=== PATIENT | male | born 1945 | race Caucasian/White ===

== ENCOUNTER → 2019-03-16 06:22 | Outpatient (CLI) | payer OTHER, SELFPAY ==
--- NOTE | 2019-03-16 | DI.ECHO.S_ITS ---
[place] +---------+ [facility] +---------+ : : [address] : : : : [id number] : : : : Phone: [phone]+ Echocardiogram Report + + :Name: IRAM COLON Study Date: 03/16/2019 Height: 70 in : :[facility] Exam Location: [facility] Weight: 280 lb : : Gender: Male BSA: 2.4 m2 : :: 1945 Age: 73 yrs BP: 140/88 mmHg: :Reason For Study: AFIB : : Performed By: August Pathak : :Referring: RUSSELL ESQUIVEL : + + Interpretation Summary 1) Normal left ventricular size with moderately reduced function (EF 35-40%). 2) Normal right ventricular size with mildly reduced function. 3) The left atrium is severely dilated. 4) No significant valvular abnormalities. 5) Atrial fibrillation with rapid ventricular response present during the study. 6) No prior Echo available for comparison. Procedure: A two-dimensional transthoracic echocardiogram with color flow and Doppler was performed. The study quality was technically difficult. There is no prior echocardiogram noted for this patient. The patient was in atrial fibrillation with rapid ventricular response during the exam with a heart rate exceeding 100 bpm. The patient had a heart rate of 90-132 beats per minute. Left Ventricle: The left ventricle is normal in size. There is normal left ventricular wall thickness. The ejection fraction is estimated to be 35-40%. Left ventricular systolic function is moderately reduced. There is moderate global hypokinesis of the left ventricle. Right Ventricle: The right ventricle is normal size. Right ventricular systolic function is mildly reduced. Atria: The left atrium is severely dilated. The right atrium is mildly dilated. The interatrial septum is intact with no evidence for an atrial septal defect. Mitral Valve: The mitral valve leaflets are mildly calcified. There is mild mitral annular calcification. There is mild mitral regurgitation. Aortic Valve: The aortic valve is trileaflet. The aortic valve is mildly calcified. There is no aortic valve stenosis. No aortic regurgitation is present. Tricuspid Valve: The tricuspid valve leaflets are thin and pliable. There is mild tricuspid regurgitation. The right ventricular systolic pressure is estimated to be at least 32 mmHg based on an estimated right atrial pressure of 3 mm Hg. Pulmonic Valve: The pulmonic valve is not well visualized. There is trace pulmonic regurgitation. Great Vessels: The aortic root is normal size. The ascending aorta is at the upper limits of normal in size. The pulmonary artery is normal size. The IVC is of normal diameter and collapses greater than 50% with a sniff. This suggests a low right atrial pressure of 3 mm Hg. Pericardium/ Pleura There is no pericardial effusion. There is no pleural effusion. MMode/2D Measurements & Calculations LVIDd: 5.3 cm LVOT diam: 2.3 cm LVIDs: 4.7 cm Ao root diam: 3.8 cm FS: 11.8 % asc Aorta Diam: 3.8 cm EPSS: 0.92 cm IVSd: 1.0 cm LVPWd: 0.95 cm LV kauffman. diameter/BSA (cm/m^2): 2.2 LV sys. diameter/BSA (cm/m^2): 2.0 LA dimension: 4.6 cm RA long axis: 6.8 cm LA A2 area: 36.0 cm2 RA area: 25.3 cm2 LA A4 area: 39.2 cm2 RA vol: 80.2 ml LA length (vol): 8.1 cm RA : 33.3 ml/m2 LA vol: 148.5 ml IVC diam: 2.1 cm LA vol index: 61.7 ml/m2 Doppler Measurements & Calculations Ao V2 max: 133.9 cm/sec LVOT Max Sg: 117.2 cm/sec Ao V2 mean: 101.0 cm/sec LV V1 max P.6 mmHg Ao max P.5 mmHg LV V1 VTI: 21.1 cm Ao mean P.7 mmHg LESLIE(I,D): 3.5 cm2 Ao V2 VTI: 24.2 cm LESLIE(V,D): 3.5 cm2 sev ratio: 0.87 LESLIE indexed to BSA (cm^2/m^2): 1.5 MV E max sg: 106.7 cm/sec TR max sg: 269.9 cm/sec MV A max sg: 0.19 cm/sec TR max P.3 mmHg MV E/A: 560.5 PA V2 max: 85.6 cm/sec Med Peak E' Sg: 7.2 cm/sec PA V2 mean: 61.5 cm/sec E/E' med: 14.9 PA mean P.6 mmHg Lat Peak E' Sg: 8.9 cm/sec PA pr(Accel): 44.1 mmHg E/E' lat: 11.9 E/e' average: 13.4 MV dec time: 0.13 sec SV(LVOT): 84.6 ml Reading Physician:01:27 PM
== END ==
PROVIDERS: PCP Internal Medicine; Visit Provider Internal Medicine
DX: I08.1 Rheumatic disorders of both mitral and tricuspid valves (principal); I48.91 Unspecified atrial fibrillation
CPT/HCPCS: 93306; Q9957

== ENCOUNTER → 2019-06-14 13:38 | Outpatient (CLI) | payer OTHER, SELFPAY ==
--- NOTE | 2019-06-14 | DI.ECHO.S_ITS ---
[place] +---------+ [facility] +---------+ : : [address] : : : : [id number] : : : : Phone: [phone]+ Echocardiogram Report + + :Name: IRAM COLON Study Date: 06/14/2019 Height: 70 in : :[facility] Exam Location: [facility] Weight: 293 lb : : Gender: Male BSA: 2.5 m2 : :: 1945 Age: 74 yrs BP: 140/80 mmHg: :Reason For Study: Cardiomyopathy : :Ordering Physician: Castillo Plata : :Pia Performed By: Lupe Page : + + Interpretation Summary 1) Normal left ventricular size with moderately reduced function (EF 35-40%). 2) Normal right ventricular size with low normal function. 3) The left atrium is moderately dilated. 4) No significant valvular abnormalities. 5) Compared to the Echo done 03/16/2019, no significant change. Procedure: A two-dimensional transthoracic echocardiogram with color flow and Doppler was performed. The study quality was technically difficult. Comparison is made with the echocardiogram of 03/16/2019. A contrast injection of Definity was performed to improve assessment of LV function. The patient was in atrial fibrillation with heart rates between 88-107 bpm during the exam. Left Ventricle: The left ventricle is normal in size. There is normal left ventricular wall thickness. The ejection fraction is estimated to be 35-40%. Diastolic function could not be accurately assessed due to atrial fibrillation. Right Ventricle: The right ventricle is normal size. Right ventricular systolic function is at the lower limits of normal. Atria: The left atrium is moderately dilated. The right atrium is mildly dilated. There is no Doppler evidence for an interatrial shunt. Mitral Valve: The mitral valve leaflets are mildly calcified. There is mild mitral annular calcification. There is mild mitral regurgitation. Aortic Valve: The aortic valve is trileaflet. The aortic valve is mildly calcified. There is no aortic valve stenosis. No aortic regurgitation is present. Tricuspid Valve: The tricuspid valve is normal in structure and function. There is mild tricuspid regurgitation. The right ventricular systolic pressure is estimated to be at least 26 mmHg based on an estimated right atrial pressure of 3 mm Hg. Pulmonic Valve: The pulmonic valve is not well visualized. There is trace pulmonic regurgitation. Great Vessels: The aortic root is normal size. The ascending aorta is mildly enlarged. The pulmonary artery is normal size. The IVC is of normal diameter and collapses greater than 50% with a sniff. This suggests a low right atrial pressure of 3 mm Hg. Pericardium/ Pleura There is no pericardial effusion. There is no pleural effusion. MMode/2D Measurements & Calculations LVIDd: 5.7 cm LVOT diam: 2.3 cm EPSS: 0.83 cm Ao root diam: 3.6 cm IVSd: 0.76 cm asc Aorta Diam: 3.8 cm LVPWd: 0.87 cm LV kauffman. diameter/BSA (cm/m^2): 2.3 LA A2 area: 25.8 cm2 RA long axis: 6.9 cm LA A4 area: 32.6 cm2 RA area: 25.8 cm2 LA length (vol): 6.9 cm RA vol: 81.7 ml LA vol: 103.5 ml RA : 33.3 ml/m2 LA vol index: 42.1 ml/m2 RVD1 (basal): 4.6 cm RVD2 (mid): 4.3 cm TAPSE: 2.3 cm Doppler Measurements & Calculations Ao V2 max: 142.0 cm/sec LVOT Max Sg: 108.9 cm/sec Ao V2 mean: 97.5 cm/sec LV V1 max P.9 mmHg Ao max P.1 mmHg LV V1 VTI: 16.1 cm Ao mean P.4 mmHg LESLIE(I,D): 2.7 cm2 Ao V2 VTI: 24.5 cm LESLIE(V,D): 3.1 cm2 sev ratio: 0.66 LESLIE indexed to BSA (cm^2/m^2): 1.1 MV E max sg: 107.3 cm/sec TR max sg: 236.3 cm/sec MV P1/2t: 41.6 msec TR max P.5 mmHg PA V2 max: 67.0 cm/sec PA V2 mean: 49.3 cm/sec PA mean P.1 mmHg PA Accel Time: 0.07 sec MV P1/2t max sg: 108.9 cm/sec SV(LVOT): 65.1 ml MVA(P1/2t): 5.3 cm2 Reading Physician:12:12 PM
== END ==
PROVIDERS: PCP Internal Medicine; Visit Provider Internal Medicine Cardiovascular Disease
DX: I42.9 Cardiomyopathy, unspecified (principal); I51.7 Cardiomegaly
CPT/HCPCS: 93306; Q9957

== ENCOUNTER → 2019-10-09 08:34 | Outpatient (CLI) | payer OTHER, SELFPAY ==
[2019-10-09 09:54] LABS: Add Manual Diff / Slide Review NO; Basophils Absolute Auto 100 /uL (0-100); Basophils Percent Auto 0.7 % (0-2); Eosinophils Absolute Auto 100 /uL (0-450); Eosinophils Percent Auto 1.6 % (2-4); Hematocrit 46.6 % (41-53); Hemoglobin 15.7 g/dL (13.5-17.5); Lymphocytes Absolute Auto 1800 /uL (1100-4500); Mean Corpuscular HGB Conc 33.8 % (30-36); Mean Corpuscular Hemoglobin 30.2 PG (26-34); Mean Corpuscular Volume 89.3 fL (80-100); Monocytes Absolute Auto 700 /uL (0-900); Monocytes Percent Auto 9.2 % (3-14); Neutrophils Absolute Auto 5000 /uL (1500-7000); Neutrophils Percent Auto 65.5 % (50-75); Platelet Count 153 X10^3/uL (150-400); Red Blood Cell Count 5.22 X10^6/uL (4.5-5.9); Red Cell Distribution Width 14.9 % (11.6-14.8); White Blood Cell Count 7.7 X10^3/uL (4.5-11.0)
[2019-10-09 09:55] LABS: Blood Urea Nitrogen 13 mg/dL (9-20); Calcium 9.4 mg/dL (8.4-10.2); Carbon Dioxide 28 mmol/L (22-32); Chloride 104 mmol/L (98-107); Estimated Glomerular Filt Rate > 60.0 mL/min (>60); Glucose 130 mg/dL (80-110); HEMOLYSIS < 15 (0-50); Potassium 4.2 mmol/L (3.4-5.1); Sodium 142 mmol/L (137-145)
== END ==
PROVIDERS: PCP Internal Medicine; Visit Provider Internal Medicine Cardiovascular Disease
DX: I10 Essential (primary) hypertension (principal)
CPT/HCPCS: 36415; 80048; 85025

== ENCOUNTER → 2020-12-06 18:49 | Outpatient (ROUT) | payer MEDICARE, SELFPAY ==
[2020-12-06 19:04] LABS: Add Manual Diff / Slide Review NO; Basophils Absolute Auto 100 /uL (0-100); Basophils Percent Auto 1.3 % (0-2); Eosinophils Absolute Auto 100 /uL (0-450); Hematocrit 44.6 % (41-53); Hemoglobin 14.4 g/dL (13.5-17.5); Lymphocytes Absolute Auto 1500 /uL (1100-4500); Lymphocytes Percent Auto 16.1 % (25-40); Mean Corpuscular HGB Conc 32.2 % (30-36); Mean Corpuscular Hemoglobin 27.1 PG (26-34); Mean Corpuscular Volume 84.1 fL (80-100); Monocytes Absolute Auto 900 /uL (0-900); Monocytes Percent Auto 9.6 % (3-14); Neutrophils Absolute Auto 6900 /uL (1500-7000); Platelet Count 231 X10^3/uL (150-400); Red Cell Distribution Width 16.5 % (11.6-14.8); White Blood Cell Count 9.6 X10^3/uL (4.5-11.0)
[2020-12-06 19:19] LABS: Alanine Aminotransferase 17 IU/L (<50); Albumin 4.2 g/dL (3.5-5.0); Albumin Globulin Ratio 1.4 (1.0-2.8); Alkaline Phosphatase 95 U/L (38-126); Aspartate Aminotransferase 26 IU/L (17-59); BUN Creatinine Ratio 20.3 (6-22); Bilirubin Total 0.6 mg/dL (0.2-1.3); Blood Urea Nitrogen 16 mg/dL (9-20); Calcium 9.4 mg/dL (8.4-10.2); Carbon Dioxide 32 mmol/L (22-32); Chloride 102 mmol/L (98-107); Cholesterol 134 mg/dL (140-199); Estimated Glomerular Filt Rate > 60.0 mL/min (>60); Globulin 3.1 g/dL (1.7-4.1); Glucose 122 mg/dL (80-110); HDL Cholesterol 30 mg/dL (40-60); HEMOLYSIS < 15 (0-50); LDL Cholesterol Calculated 66 mg/dL (<100); Potassium 4.2 mmol/L (3.4-5.1); Sodium 141 mmol/L (137-145); Total Protein 7.3 g/dL (6.3-8.2); Triglycerides 189 mg/dL (35-150)
[2020-12-06 19:38] LABS: Hemoglobin A1C% w Est Avg Glu 6.7 % (4.0-6.0)
[2020-12-06 19:43] LABS: TSH w/ Reflex to FT4 0.79 uIU/mL (0.47-4.68)
== END ==
PROVIDERS: PCP Internal Medicine; Visit Provider Internal Medicine
DX: I48.20 Chronic atrial fibrillation, unspecified (principal); E78.2 Mixed hyperlipidemia
CPT/HCPCS: 80053; 80061; 83036; 84443; 84550; 85025

== ENCOUNTER → 2022-02-16 07:56 | Outpatient (CLI) | payer OTHER, SELFPAY ==
[2022-02-16 08:58] LABS: Add Manual Diff / Slide Review NO; Basophils Absolute Auto 100 /uL (0-100); Basophils Percent Auto 0.8 % (0-2); Eosinophils Absolute Auto 100 /uL (0-450); Eosinophils Percent Auto 0.9 % (2-4); Hematocrit 46.1 % (41-53); Hemoglobin 15.4 g/dL (13.5-17.5); Lymphocytes Absolute Auto 1900 /uL (1100-4500); Lymphocytes Percent Auto 22.7 % (25-40); Mean Corpuscular HGB Conc 33.3 % (30-36); Mean Corpuscular Hemoglobin 29.7 PG (26-34); Mean Corpuscular Volume 89.2 fL (80-100); Monocytes Absolute Auto 900 /uL (0-900); Monocytes Percent Auto 10.5 % (3-14); Neutrophils Absolute Auto 5400 /uL (1500-7000); Neutrophils Percent Auto 65.1 % (50-75); Platelet Count 156 X10^3/uL (150-400); Red Blood Cell Count 5.17 X10^6/uL (4.5-5.9); Red Cell Distribution Width 15.5 % (11.6-14.8); White Blood Cell Count 8.2 X10^3/uL (4.5-11.0)
[2022-02-16 09:48] LABS: BUN Creatinine Ratio 13.3 (6-22); Blood Urea Nitrogen 14 mg/dL (9-20); Calcium 9.3 mg/dL (8.4-10.2); Carbon Dioxide 30 mmol/L (22-32); Chloride 101 mmol/L (98-107); Cholesterol 127 mg/dL (140-199); Estimated Glomerular Filt Rate > 60.0 mL/min (>60); Glucose 161 mg/dL (80-110); HDL Cholesterol 28 mg/dL (40-60); HEMOLYSIS < 15 (0-50); LDL Cholesterol Calculated 56 mg/dL (<100); Sodium 142 mmol/L (137-145); Triglycerides 215 mg/dL (35-150)
[2022-02-16 10:11] LABS: TSH w/ Reflex to FT4 2.07 uIU/mL (0.47-4.68)
== END ==
PROVIDERS: PCP Internal Medicine; Referring Provider Internal Medicine Cardiovascular Disease; Visit Provider Internal Medicine Cardiovascular Disease
DX: E78.5 Hyperlipidemia, unspecified (principal); Z51.81 Encounter for therapeutic drug level monitoring; Z79.899 Other long term (current) drug therapy; I10 Essential (primary) hypertension
CPT/HCPCS: 36415; 80048; 80061; 84443; 85025

== ENCOUNTER → 2022-08-31 08:55 | Outpatient (CLI) | payer OTHER, SELFPAY ==
[2022-08-31 16:02] LABS: TSH w/ Reflex to FT4 1.76 uIU/mL (0.47-4.68)
== END ==
PROVIDERS: PCP Internal Medicine; Referring Provider Internal Medicine Cardiovascular Disease; Visit Provider Internal Medicine Cardiovascular Disease
DX: Z79.899 Other long term (current) drug therapy (principal); Z51.81 Encounter for therapeutic drug level monitoring
CPT/HCPCS: 36415; 84443

== ENCOUNTER → 2022-09-10 09:56 | Outpatient (CLI) | payer OTHER, SELFPAY ==
[2022-09-10 11:07] LABS: Hematocrit 47.7 % (41-53); Mean Corpuscular HGB Conc 33.4 % (30-36); Mean Corpuscular Hemoglobin 28.9 PG (26-34); Mean Corpuscular Volume 86.4 fL (80-100); Platelet Count 148 X10^3/uL (150-400); Red Blood Cell Count 5.53 X10^6/uL (4.5-5.9); Red Cell Distribution Width 16.4 % (11.6-14.8); White Blood Cell Count 7.8 X10^3/uL (4.5-11.0)
[2022-09-10 11:15] LABS: Hemoglobin A1C% w Est Avg Glu 6.7 % (4.0-6.0)
[2022-09-10 11:16] LABS: INR 1.5 (0.9-1.3); Prothrombin Time 16.7 SECONDS (10.1-12.7)
[2022-09-10 11:31] LABS: Alanine Aminotransferase 38 IU/L (<50); Albumin 4.4 g/dL (3.5-5.0); Albumin Globulin Ratio 1.3 (1.0-2.8); Alkaline Phosphatase 77 U/L (38-126); Aspartate Aminotransferase 37 IU/L (17-59); BUN Creatinine Ratio 22.6 (6-22); Bilirubin Total 0.7 mg/dL (0.2-1.3); Blood Urea Nitrogen 21 mg/dL (9-20); Calcium 9.1 mg/dL (8.4-10.2); Carbon Dioxide 30 mmol/L (22-32); Chloride 101 mmol/L (98-107); Cholesterol 114 mg/dL (140-199); Estimated Glomerular Filt Rate > 60 mL/min (>60); Globulin 3.4 g/dL (1.7-4.1); Glucose 134 mg/dL (80-110); HDL Cholesterol 25 mg/dL (40-60); HEMOLYSIS 17 (0-50); LDL Cholesterol Calculated 56 mg/dL (<100); Potassium 4.4 mmol/L (3.4-5.1); Sodium 142 mmol/L (137-145); Total Protein 7.8 g/dL (6.3-8.2); Triglycerides 163 mg/dL (35-150)
[2022-09-10 15:43] LABS: Microalbumin Urine Random 44.7 mg/dL (0-1.6)
[2022-09-10 15:45] LABS: Creatinine Urine Random 144.8 mg/dL; Microalbumi Creatinin Ratio Ur 308.7 ug/mg CR (<30)
== END ==
PROVIDERS: PCP Internal Medicine; Referring Provider Internal Medicine; Visit Provider Internal Medicine
DX: E11.59 Type 2 diabetes mellitus with other circulatory complications (principal); I48.19 Other persistent atrial fibrillation; I10 Essential (primary) hypertension; E78.2 Mixed hyperlipidemia
CPT/HCPCS: 36415; 80053; 80061; 82043; 82570; 83036; 85027; 85610

== ENCOUNTER → 2022-09-29 07:48 | Outpatient (CLI) | payer OTHER, SELFPAY ==
[2022-09-29 09:11] LABS: INR 1.6 (0.9-1.3)
== END ==
PROVIDERS: PCP Internal Medicine; Referring Provider Internal Medicine; Visit Provider Internal Medicine
DX: I48.19 Other persistent atrial fibrillation (principal); Z51.81 Encounter for therapeutic drug level monitoring; Z79.01 Long term (current) use of anticoagulants
CPT/HCPCS: 36415; 85610

== ENCOUNTER → 2022-10-06 07:13 | Outpatient (CLI) | payer OTHER, SELFPAY ==
[2022-10-06 08:22] LABS: INR 2.6 (0.9-1.3); Prothrombin Time 30.4 SECONDS (10.1-12.7)
== END ==
PROVIDERS: PCP Internal Medicine; Referring Provider Internal Medicine; Visit Provider Internal Medicine
DX: Z51.81 Encounter for therapeutic drug level monitoring (principal); I48.19 Other persistent atrial fibrillation; Z79.01 Long term (current) use of anticoagulants
CPT/HCPCS: 36415; 85610

== ENCOUNTER → 2022-10-20 07:17 | Outpatient (CLI) | payer OTHER, SELFPAY ==
[2022-10-20 07:51] LABS: INR 2.5 (0.9-1.3); Prothrombin Time 29.1 SECONDS (10.1-12.7)
== END ==
PROVIDERS: PCP Internal Medicine; Referring Provider Internal Medicine; Visit Provider Internal Medicine
DX: I48.19 Other persistent atrial fibrillation (principal); Z51.81 Encounter for therapeutic drug level monitoring; Z79.01 Long term (current) use of anticoagulants
CPT/HCPCS: 36415; 85610

== ENCOUNTER → 2022-11-03 08:01 | Outpatient (CLI) | payer OTHER, SELFPAY ==
[2022-11-03 09:11] LABS: INR 2.7 (0.9-1.3); Prothrombin Time 30.9 SECONDS (10.1-12.7)
== END ==
PROVIDERS: PCP Internal Medicine; Referring Provider Internal Medicine; Visit Provider Internal Medicine
DX: I48.19 Other persistent atrial fibrillation (principal); Z51.81 Encounter for therapeutic drug level monitoring; Z79.01 Long term (current) use of anticoagulants
CPT/HCPCS: 36415; 85610

== ENCOUNTER → 2022-12-01 09:52 | Outpatient (CLI) | payer MEDICARE, SELFPAY ==
[2022-12-01 10:56] LABS: INR 2.7 (0.9-1.3); Prothrombin Time 31.5 SECONDS (10.1-12.7)
== END ==
PROVIDERS: PCP Internal Medicine; Referring Provider Internal Medicine; Visit Provider Internal Medicine
DX: I48.19 Other persistent atrial fibrillation (principal); Z51.81 Encounter for therapeutic drug level monitoring; Z79.01 Long term (current) use of anticoagulants
CPT/HCPCS: 36415; 85610

== ENCOUNTER → 2023-01-01 06:55 | Outpatient (CLI) | payer MEDICARE, SELFPAY ==
[2023-01-01 07:50] LABS: INR 2.9 (0.9-1.3)
== END ==
PROVIDERS: PCP Internal Medicine; Referring Provider Internal Medicine; Visit Provider Internal Medicine
DX: Z79.01 Long term (current) use of anticoagulants (principal); I48.19 Other persistent atrial fibrillation; Z51.81 Encounter for therapeutic drug level monitoring
CPT/HCPCS: 36415; 85610

== ENCOUNTER → 2023-01-28 08:11 | Outpatient (CLI) | payer MEDICARE, SELFPAY ==
[2023-01-28 09:09] LABS: Prothrombin Time 34.6 SECONDS (10.1-12.7)
== END ==
PROVIDERS: PCP Internal Medicine; Referring Provider Internal Medicine; Visit Provider Internal Medicine
DX: Z51.81 Encounter for therapeutic drug level monitoring (principal); Z79.01 Long term (current) use of anticoagulants
CPT/HCPCS: 36415; 85610

== ENCOUNTER → 2023-03-12 08:34 | Outpatient (CLI) | payer MEDICARE, SELFPAY ==
[2023-03-12 09:17] LABS: Hematocrit 46.7 % (41-53); Hemoglobin 15.7 g/dL (13.5-17.5); Mean Corpuscular HGB Conc 33.6 % (30-36); Mean Corpuscular Hemoglobin 30.1 PG (26-34); Mean Corpuscular Volume 89.5 fL (80-100); Platelet Count 139 X10^3/uL (150-400); Red Blood Cell Count 5.23 X10^6/uL (4.5-5.9); Red Cell Distribution Width 15.5 % (11.6-14.8); White Blood Cell Count 8.8 X10^3/uL (4.5-11.0)
[2023-03-12 09:24] LABS: INR 3.3 (0.9-1.3); Prothrombin Time 38.6 SECONDS (10.1-12.7)
[2023-03-12 09:44] LABS: Alanine Aminotransferase 31 IU/L (<50); Albumin 4.4 g/dL (3.5-5.0); Albumin Globulin Ratio 1.4 (1.0-2.8); Alkaline Phosphatase 75 U/L (38-126); Aspartate Aminotransferase 27 IU/L (17-59); Bilirubin Total 0.4 mg/dL (0.2-1.3); Blood Urea Nitrogen 20 mg/dL (9-20); Carbon Dioxide 32 mmol/L (22-32); Chloride 100 mmol/L (98-107); Cholesterol 110 mg/dL (140-199); Estimated Glomerular Filt Rate > 60 mL/min (>60); Globulin 3.1 g/dL (1.7-4.1); Glucose 150 mg/dL (80-110); HDL Cholesterol 31 mg/dL (40-60); HEMOLYSIS < 15 (0-50); LDL Cholesterol Calculated 47 mg/dL (<100); Potassium 4.1 mmol/L (3.4-5.1); Sodium 143 mmol/L (137-145); Total Protein 7.5 g/dL (6.3-8.2); Triglycerides 160 mg/dL (35-150)
[2023-03-13 08:41] LABS: x Labcorp Estim. Avg Glu (eAG) 163 mg/dL (.); x Labcorp Hemoglobin A1c 7.3 % (4.8-5.6)
== END ==
PROVIDERS: PCP Internal Medicine; Referring Provider Internal Medicine; Visit Provider Internal Medicine
DX: I48.19 Other persistent atrial fibrillation; E11.59 Type 2 diabetes mellitus with other circulatory complications; Z79.01 Long term (current) use of anticoagulants
CPT/HCPCS: 36415; 80053; 80061; 83036; 85027; 85610

== ENCOUNTER → 2023-05-28 07:08 | Outpatient (CLI) | payer MEDICARE, SELFPAY ==
[2023-05-28 08:13] LABS: Add Manual Diff / Slide Review NO; Basophils Absolute Auto 100 /uL (0-100); Basophils Percent Auto 1.1 % (0-2); Eosinophils Absolute Auto 100 /uL (0-450); Hematocrit 46.3 % (41-53); Hemoglobin 15.8 g/dL (13.5-17.5); Lymphocytes Absolute Auto 1700 /uL (1100-4500); Lymphocytes Percent Auto 23.1 % (25-40); Mean Corpuscular HGB Conc 34.2 % (30-36); Mean Corpuscular Hemoglobin 30.7 PG (26-34); Mean Corpuscular Volume 89.7 fL (80-100); Monocytes Absolute Auto 700 /uL (0-900); Monocytes Percent Auto 9.2 % (3-14); Neutrophils Absolute Auto 4800 /uL (1500-7000); Neutrophils Percent Auto 65.6 % (50-75); Platelet Count 131 X10^3/uL (150-400); Red Blood Cell Count 5.16 X10^6/uL (4.5-5.9); Red Cell Distribution Width 16.1 % (11.6-14.8); White Blood Cell Count 7.2 X10^3/uL (4.5-11.0)
[2023-05-28 08:47] LABS: BUN Creatinine Ratio 19.8 (6-22); Blood Urea Nitrogen 23 mg/dL (9-20); Calcium 9.2 mg/dL (8.4-10.2); Carbon Dioxide 33 mmol/L (22-32); Chloride 98 mmol/L (98-107); Cholesterol 105 mg/dL (140-199); Estimated Glomerular Filt Rate > 60 mL/min (>60); Glucose 144 mg/dL (80-110); HDL Cholesterol 28 mg/dL (40-60); HEMOLYSIS < 15 (0-50); LDL Cholesterol Calculated 40 mg/dL (<100); Potassium 4.3 mmol/L (3.4-5.1); Sodium 141 mmol/L (137-145); Triglycerides 185 mg/dL (35-150)
[2023-05-28 09:16] LABS: TSH w/ Reflex to FT4 1.78 uIU/mL (0.47-4.68)
== END ==
PROVIDERS: PCP Internal Medicine; Referring Provider Internal Medicine Cardiovascular Disease; Visit Provider Internal Medicine Cardiovascular Disease
DX: I48.19 Other persistent atrial fibrillation (principal); E78.5 Hyperlipidemia, unspecified
CPT/HCPCS: 36415; 80048; 80061; 84443; 85025

== ENCOUNTER → 2023-07-22 13:24 | Outpatient (CLI) | payer MEDICARE, SELFPAY ==
--- NOTE | 2023-07-22 | DI.ECHO.S_ITS ---
[place] +---------+ [facility] +---------+ : : [address] : : : : [id number] : : : : Phone: [phone] +---------+ Echocardiogram Report + + :Name: IRAM COLON Study Date: 07/22/2023 Height: 68 in : :[facility] ReadingLocation: Weight: 310 lb : : Gender: Male BSA: 2.5 m2 : :: 1945 Age: 78 yrs BP: 114/89 mmHg: :Reason For Study: CARDIOMYOPATHY : :Ordering Physician: JOLANTA, : :ISIDRA Performed By: Stacie Rangel : :Referring: ISIDRA PALACIO : + + Interpretation Summary 1) Normal left ventricular size with moderately reduced function (EF 35-40%). 2) The right ventricle is mildly dilated. Right ventricular systolic function is mildly reduced. 3) Mild aortic stenosis present (1.6cm2, mean gradient 8mmHg, severity ratio 0.41). 4) Compared to the Echo done 06/14/2019, mild aortic stenosis is present on this study. Procedure: A two-dimensional transthoracic echocardiogram with color flow and Doppler was performed. The study quality was technically adequate. Comparison is made with the echocardiogram of 06/14/2019. The patient was in atrial fibrillation with heart rates between 87-116 bpm during the exam. Left Ventricle: The left ventricle is normal in size and wall thickness. The ejection fraction is estimated to be 35-40%. Diastolic function could not be accurately assessed due to atrial fibrillation. Right Ventricle: The right ventricle is mildly dilated. Right ventricular systolic function is mildly reduced. Atria: The left atrium is mildly dilated. Right atrial size is normal. There is no Doppler evidence for an interatrial shunt. Mitral Valve: The mitral valve leaflets are mildly calcified. There is mild mitral annular calcification. There is mild mitral regurgitation. Aortic Valve: The aortic valve is trileaflet. The aortic valve is mildly calcified. There is mild aortic valve sclerosis. There is mild aortic stenosis. No aortic regurgitation is present. Tricuspid Valve: The tricuspid valve leaflets are thin and pliable. There is mild to moderate tricuspid regurgitation. Right ventricular systolic pressure is estimated to be 34 mmHg plus the clinically estimated CVP which cannot be estimated on this exam. Pulmonic Valve: The pulmonic valve is not well visualized. There is trace pulmonic regurgitation. Great Vessels: The aortic root is normal size. The ascending aorta is mild- moderately enlarged. The inferior vena cava was not well visualized. Pericardium/ Pleura There is no pericardial effusion. There is no pleural effusion. MMode/2D Measurements & Calculations LVIDd: 5.9 cm LVOT diam: 2.3 cm LVIDs: 4.9 cm Ao root diam: 3.8 cm FS: 17.7 % asc Aorta Diam: 4.3 cm EPSS: 1.3 cm IVSd: 0.81 cm LVPWd: 1.0 cm LV kauffman. diameter/BSA (cm/m^2): 2.4 LV sys. diameter/BSA (cm/m^2): 2.0 LA A2 area: 24.2 cm2 RA long axis: 6.7 cm LA A4 area: 26.5 cm2 RA area: 22.8 cm2 LA length (vol): 6.9 cm RA vol: 66.1 ml LA vol: 79.4 ml RA : 26.8 ml/m2 LA vol index: 32.2 ml/m2 RVD1 (basal): 4.6 cm RVD2 (mid): 3.6 cm TAPSE: 1.5 cm Doppler Measurements & Calculations Ao V2 max: 185.9 cm/sec LVOT Max Sg: 82.0 cm/sec Ao V2 mean: 134.7 cm/sec LV V1 max P.7 mmHg Ao max P.8 mmHg LV V1 VTI: 12.9 cm Ao mean P.2 mmHg LESLIE(I,D): 1.6 cm2 Ao V2 VTI: 31.5 cm LESLIE(V,D): 1.8 cm2 sev ratio: 0.41 LESLIE indexed to BSA (cm^2/m^2): 0.67 MV E max sg: 107.2 cm/sec TR max sg: 291.3 cm/sec MV A max sg: 1.4 cm/sec TR max P.9 mmHg MV E/A: 78.9 PA V2 max: 77.2 cm/sec Med Peak E' Sg: 7.6 cm/sec PA V2 mean: 56.0 cm/sec E/E' med: 14.0 PA mean P.3 mmHg Lat Peak E' Sg: 7.0 cm/sec PA pr(Accel): 51.6 mmHg E/E' lat: 15.4 E/e' average: 14.7 MV dec time: 0.16 sec SVLVOT): 52.0 ml Reading Physician:12:57 PM
== END ==
PROVIDERS: PCP Internal Medicine; Referring Provider Internal Medicine Cardiovascular Disease; Visit Provider Internal Medicine Cardiovascular Disease
DX: I08.3 Combined rheumatic disorders of mitral, aortic and tricuspid valves (principal); I42.9 Cardiomyopathy, unspecified; I77.89 Other specified disorders of arteries and arterioles
CPT/HCPCS: C8929; Q9957

== ENCOUNTER → 2023-10-07 09:22 | Outpatient (CLI) | payer MEDICARE, SELFPAY ==
[2023-10-07 11:21] LABS: Hemoglobin A1C% w Est Avg Glu 11.5 % (4.0-6.0)
[2023-10-07 11:22] LABS: BUN Creatinine Ratio 16.8 (6-22); Blood Urea Nitrogen 17 mg/dL (9-20); Calcium 8.9 mg/dL (8.4-10.2); Carbon Dioxide 34 mmol/L (22-32); Chloride 101 mmol/L (98-107); Estimated Glomerular Filt Rate > 60 mL/min (>60); Glucose 203 mg/dL (80-110); HEMOLYSIS < 15 (0-50); Potassium 3.6 mmol/L (3.4-5.1); Sodium 138 mmol/L (137-145)
[2023-10-07 11:56] LABS: Creatinine Urine Random 127.3 mg/dL
[2023-10-07 12:01] LABS: Microalbumin Urine Random 10.7 mg/dL (0-1.6)
== END ==
PROVIDERS: PCP Internal Medicine; Referring Provider Internal Medicine; Visit Provider Internal Medicine
DX: I48.19 Other persistent atrial fibrillation (principal); E11.59 Type 2 diabetes mellitus with other circulatory complications
CPT/HCPCS: 36415; 80048; 82043; 82570; 83036

== ENCOUNTER → 2024-02-24 08:35 | Outpatient (CLI) | payer MEDICARE, SELFPAY ==
[2024-02-24 09:42] LABS: Hematocrit 49.1 % (41-53); Hemoglobin 16.4 g/dL (13.5-17.5); Mean Corpuscular HGB Conc 33.5 % (30-36); Mean Corpuscular Hemoglobin 29.8 PG (26-34); Mean Corpuscular Volume 89.1 fL (80-100); Platelet Count 152 X10^3/uL (150-400); Red Blood Cell Count 5.51 X10^6/uL (4.5-5.9); Red Cell Distribution Width 15.6 % (11.6-14.8); White Blood Cell Count 8.7 X10^3/uL (4.5-11.0)
[2024-02-24 10:07] LABS: BUN Creatinine Ratio 16.7 (6-22); Blood Urea Nitrogen 16 mg/dL (9-20); Calcium 9.2 mg/dL (8.4-10.2); Carbon Dioxide 32 mmol/L (22-32); Chloride 101 mmol/L (98-107); Cholesterol 114 mg/dL (140-199); Estimated Glomerular Filt Rate > 60 mL/min (>60); Glucose 359 mg/dL (80-110); HDL Cholesterol 25 mg/dL (40-60); HEMOLYSIS < 15 (0-50); LDL Cholesterol Calculated 29 mg/dL (<100); Potassium 4.8 mmol/L (3.4-5.1); Sodium 139 mmol/L (137-145); Triglycerides 299 mg/dL (35-150)
[2024-02-24 10:49] LABS: TSH w/ Reflex to FT4 1.46 uIU/mL (0.47-4.68)
== END ==
PROVIDERS: PCP Internal Medicine; Referring Provider Internal Medicine Cardiovascular Disease; Visit Provider Internal Medicine Cardiovascular Disease
DX: I10 Essential (primary) hypertension (principal); E78.5 Hyperlipidemia, unspecified; Z51.81 Encounter for therapeutic drug level monitoring; Z79.899 Other long term (current) drug therapy
CPT/HCPCS: 36415; 80048; 80061; 84443; 85027

== ENCOUNTER → 2024-04-06 08:56 | Outpatient (CLI) | payer MEDICARE, SELFPAY ==
[2024-04-06 09:51] LABS: INR 2.5 (0.9-1.3); Prothrombin Time 28.7 SECONDS (9.4-12.5)
[2024-04-06 20:32] LABS: BUN Creatinine Ratio 22.2 (6-22); Blood Urea Nitrogen 20 mg/dL (9-20); Calcium 8.8 mg/dL (8.4-10.2); Carbon Dioxide 29 mmol/L (22-32); Chloride 99 mmol/L (98-107); Estimated Glomerular Filt Rate > 60 mL/min (>60); Glucose 398 mg/dL (80-110); HEMOLYSIS < 15 (0-50); Potassium 4.9 mmol/L (3.4-5.1); Sodium 138 mmol/L (137-145)
[2024-04-07 06:11] LABS: Hemoglobin A1C% w Est Avg Glu > 14.0 % (4.0-6.0)
== END ==
LOC: LAB 08:56
PROVIDERS: PCP Internal Medicine; Referring Provider Internal Medicine; Visit Provider Internal Medicine
DX: I48.19 Other persistent atrial fibrillation (principal); E11.59 Type 2 diabetes mellitus with other circulatory complications; I10 Essential (primary) hypertension
CPT/HCPCS: 36415; 80048; 83036; 85610

== ENCOUNTER → 2024-10-12 08:53 | Outpatient (CLI) | payer MEDICARE, SELFPAY ==
[2024-10-12 10:16] LABS: Hematocrit 47.3 % (41-53); Hemoglobin 15.7 g/dL (13.5-17.5); Mean Corpuscular HGB Conc 33.2 % (30-36); Mean Corpuscular Hemoglobin 29.7 PG (26-34); Mean Corpuscular Volume 89.6 fL (80-100); Platelet Count 133 X10^3/uL (150-400); Red Blood Cell Count 5.28 X10^6/uL (4.5-5.9); Red Cell Distribution Width 15.3 % (11.6-14.8); White Blood Cell Count 9.1 X10^3/uL (4.5-11.0)
[2024-10-12 10:31] LABS: Hemoglobin A1C% w Est Avg Glu > 14.0 % (4.0-6.0)
[2024-10-12 10:47] LABS: Aspartate Aminotransferase 28 IU/L (17-59); BUN Creatinine Ratio 20.3 (6-22); Blood Urea Nitrogen 16 mg/dL (9-20); Calcium 9.3 mg/dL (8.4-10.2); Carbon Dioxide 31 mmol/L (22-32); Chloride 96 mmol/L (98-107); Estimated Glomerular Filt Rate > 60 mL/min (>60); Glucose 321 mg/dL (80-110); HEMOLYSIS < 15 (0-50); Potassium 4.5 mmol/L (3.4-5.1); Sodium 134 mmol/L (137-145)
== END ==
PROVIDERS: PCP Internal Medicine; Referring Provider Internal Medicine; Visit Provider Internal Medicine
DX: E11.59 Type 2 diabetes mellitus with other circulatory complications (principal); I50.22 Chronic systolic (congestive) heart failure
CPT/HCPCS: 36415; 80048; 83036; 84450; 85027

== ENCOUNTER → 2025-01-19 09:21 | Outpatient (CLI) | payer MEDICARE, SELFPAY ==
[2025-01-19 10:27] LABS: Hemoglobin A1C% w Est Avg Glu 9.2 % (4.0-6.0)
== END ==
PROVIDERS: PCP Internal Medicine; Referring Provider Internal Medicine; Visit Provider Internal Medicine
DX: E11.59 Type 2 diabetes mellitus with other circulatory complications (principal)
CPT/HCPCS: 36415; 83036

== ENCOUNTER → 2025-10-29 08:31 | Outpatient (CLI) | payer MEDICARE, SELFPAY ==
[2025-10-29 09:18] LABS: Hemoglobin A1C% w Est Avg Glu 6.4 % (4.0-6.0)
[2025-10-29 09:19] LABS: Blood Urea Nitrogen 16 mg/dL (9-20); Calcium 9.4 mg/dL (8.4-10.2); Carbon Dioxide 34 mmol/L (22-32); Chloride 99 mmol/L (98-107); Estimated Glomerular Filt Rate > 60 mL/min (>60); Glucose 126 mg/dL (70-99); HEMOLYSIS < 15 (0-50); Potassium 4.1 mmol/L (3.4-5.1); Sodium 142 mmol/L (137-145)
== END ==
PROVIDERS: PCP Internal Medicine; Referring Provider Internal Medicine; Visit Provider Internal Medicine
DX: E11.59 Type 2 diabetes mellitus with other circulatory complications (principal)
CPT/HCPCS: 36415; 80048; 83036